=== PATIENT | female | born 1955 | race American Indian/Alaskan Native ===

== ENCOUNTER 2019-03-11 10:29 | Emergency (ER) | payer BC ==
[2019-03-11 10:36] VITALS: BP 156/86
--- NOTE | 2019-03-11 11:23 | UC ---
Respiratory Complaint HPI - HPI Summary HPI Summary: 64-year-old patient who has had cold symptoms with head congestion and nonproductive cough over the past 3 days which is worsening today. Today she states that she has chest pain with coughing and if she takes a deep inspiration. She is a nonsmoker. She denies any chest pain when she is not coughing, no radiation of pain, no nausea, diaphoresis. She has no history of DVT or pulmonary embolus. She is not on any hormone therapy. - History of Current Complaint Chief Complaint: UCRespiratory Stated Complaint: uri Time Seen by Provider: 03/11/19 11:09 Hx Obtained From: Patient ?: No Onset/Duration: Sudden Onset Timing: Constant Severity Initially: Mild Severity Currently: Moderate Pain Intensity: 10 Associated Signs And Symptoms: Positive: URI, Nasal Congestion - Allergies/Home Medications Allergies/Adverse Reactions: Allergies Allergy/AdvReac Type Severity Reaction Status Date / Time No Known Allergies Allergy Verified 03/24/14 19:27 Home Medications: Home Medications NK [No Home Medications Reported] 03/11/19 [History Confirmed 03/11/19] PMH/Surg Hx/FS Hx/Imm Hx Previously Healthy: Yes - Surgical History Surgical History: None - Family History Known Family History: Positive: Non-Contributory - Social History Alcohol Use: Rare Substance Use Type: None Smoking Status (MU): Never Smoked Tobacco Review of Systems All Other Systems Reviewed And Are Negative: Yes ENT: Positive: Nasal Discharge Respiratory: Positive: Cough - Nonproductive cough.. Negative: Shortness Of Breath Cardiovascular: Positive: Chest Pain - Patient states she has chest pain with coughing and when taking deep breaths. Is Patient Immunocompromised?: No Physical Exam Triage Information Reviewed: Yes Appearance: Well-Appearing, No Pain Distress, Well-Nourished Vital Signs: Initial Vital Signs Temp 99 F 03/11/19 10:33 Pulse 100 03/11/19 10:33 Resp 20 03/11/19 10:33 BP 156/86 03/11/19 10:33 Pulse Ox 100 03/11/19 10:33 Vital Signs Reviewed: Yes Eyes: Positive: Conjunctiva Clear ENT: Positive: Hearing grossly normal, Pharynx normal, Nasal congestion, TMs normal, Uvula midline Neck: Positive: Supple, Nontender, No Lymphadenopathy Respiratory: Positive: Lungs clear, Normal breath sounds, No respiratory distress, No accessory muscle use Cardiovascular: Positive: RRR, No Murmur, Pulses Normal, Brisk Capillary Refill Musculoskeletal Exam: Normal Neurological Exam: Normal Psychological Exam: Normal Skin Exam: Normal Respiratory Course/Dx - Course Course Of Treatment: Chest x-ray:2 views of the chest including dual energy PA views demonstrates no mediastinal shift. Heart is of normal size and configuration. Lung dumont are clear. IMPRESSION: No active cardiopulmonary disease is noted. Well's Score is 1.5 I spoke with the patient about going to the emergency room for evaluation for pulmonary embolus and she is willing to go however she is not willing to take an ambulance. Her is accompanying her and he will drive her to the emergency room. I advised them if they have any difficulties lung way they are to call 911. I gave report to Taniya Cash in the emergency room. Although the patient has a very low well's score with the negative chest x-ray and the way she is hyperventilating and still having the chest pain on deep inspiration I believe she needs to be evaluated for pulmonary embolus. - Differential Dx/Diagnosis Provider Diagnosis: Chest pain made worse by breathing Discharge - Sign-Out/Discharge Documenting (check all that apply): Patient Departure All imaging exams completed and their final reports reviewed: Yes - Discharge Plan Condition: Fair Disposition: HOME-RECOMMEND TO ED Referrals: No Primary Care Phys,NOPCP [Primary Care Provider] - Additional Instructions: After the evaluation by the nurse practitioner, it is recommended that you go to the emergency room for further evaluation of the difficulty breathing and chest pain on inspiration where you should receive additional testing that can be completed in the emergency department. It is recommended that you go directly to the emergency department. This evaluation may include blood work or imaging. This testing will be directed and decided by the provider that evaluates you within the emergency department. If pain becomes worse, you feel lightheaded or you develop worsening symptoms or have any other concerns while you are driving to the emergency room, please order puller and call 911. - Billing Disposition and Condition Condition: FAIR Disposition: Home-Recommend to ED
== END 2019-03-11 12:12 | disposition home health service (06) ==
LOC: UCEAST 10:29
DX: R07.1 Chest pain on breathing (principal); R09.89 Other specified symptoms and signs involving the circulatory and respiratory systems
CPT/HCPCS: 71046; 99201; G0463

== ENCOUNTER 2019-03-11 12:34 | Emergency (ER) | payer BC ==
[2019-03-11 13:25] LABS: ABS Basophils 0.1 10^3/ul (0-0.2); ABS Lymphocytes 1.6 10^3/ul (1.0-4.8); ABS Monocytes 0.8 10^3/ul (0-0.8); ABS Neutrophils 5.4 10^3/ul (1.5-7.7); Eosinophil % 0.4 %; Hematocrit 45 % (35-47); Hemoglobin 15.1 g/dL (12.0-16.0); Mean Corpuscular HGB Conc 34 g/dL (31-36); Mean Corpuscular Hemoglobin 30 pg (27-31); Mean Corpuscular Volume 89 fL (80-97); Mean Platelet Volume 7.6 fL (7.4-10.4); Nucleated Red Blood Cells % 0.5; Platelet Count 310 10^3/uL (150-450); Red Blood Count 5.01 10^6 /uL (3.70-4.87); Red Cell Distribution Width 13 % (10.5-15); White Blood Count 7.9 10^3/uL (3.5-10.8)
[2019-03-11 13:41] LABS: INR 0.95 (0.82-1.09)
[2019-03-11 13:50] LABS: Albumin 5.1 g/dL (3.2-5.2); Albumin/Globulin Ratio 1.7 (1-3); BUN/Creatinine Ratio 10.8 (8-20); Calcium 10.8 mg/dL (8.6-10.3); EGFR Non-African American 54.6 (>60); Potassium 4.6 mmol/L (3.5-5.0); Total Bilirubin 0.6 mg/dL (0.2-1.0); Total Protein 8.1 g/dL (6.4-8.9)
--- NOTE | 2019-03-11 13:50 | ED ---
Respiratory - HPI Summary HPI Summary: A 64 y/o F referred from [facility] presents to ED with SOB onset 3-4 days ago. Patient has had a cold recently. CXR at [facility], today at 11:55, showed no cardiopulmonary dz. Associated sx: non-productive cough. Denies fever, calf pain , CP. She's been taking Robitussin for her cough with mild relief. She did not receive the flu shot this year. She went to her granddaughters graduation last weekend and was exposed to many people. Non-smoker. No prior hx of PNA. Her PMHx includes anemia, asthma as a child. Patient does not have a PCP, she does not like to go to the doctor. Denies recent travel, [place] estrogen use. Prior surgeries: appy, ablation approx 20 years ago. Vitals at bedside: Patient seen in sub-waiting at 13:47. 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 - Onset/Duration: Gradual Onset, Lasting Days, Still Present Timing: Constant Initial Severity: Moderate Current Severity: Moderate Pain Intensity: 4 - out of 10 Character: Cough (Nonproductive), Dyspnea at Rest Sputum Amount: None Aggravating Factor(s): Nothing Alleviating Factor(s): OTC Medications - mild relief with Robitussin Associated Signs and Symptoms: SOB, URI, Nasal Congestion - Allergy/Home Medications Allergies/Adverse Reactions: Allergies Allergy/AdvReac Type Severity Reaction Status Date / Time No Known Allergies Allergy Verified 03/11/19 12:41 PMH/Surg Hx/FS Hx/Imm Hx Previously Healthy: No Endocrine/Hematology History: Reports: Hx Anemia Respiratory History: Reports: Hx Asthma - A CHILD Opthamlomology History: Denies: Hx Legally Blind Neurological History: Denies: Hx Dementia - Cancer History Cancer Type, Location and Year: denies Infectious Disease History: No Infectious Disease History: Denies: Traveled Outside the [place] in Last 30 Days - Family History Family History: mom - DVTs, cardiac stents. father - unknown - Social History Occupation: Employed Full-time Lives: With Family Alcohol Use: Rare Hx Substance Use: No Substance Use Type: Reports: None Hx Tobacco Use: No Smoking Status (MU): Never Smoked Tobacco Review of Systems Negative: Fever Positive: Nasal Discharge - and congestion, resolving Negative: Chest Pain Positive: Shortness Of Breath, Cough Gastrointestinal: Negative Positive: no symptoms reported Negative: Myalgia - neg: calf pain Skin: Negative Neurological: Negative Psychological: Normal All Other Systems Reviewed And Are Negative: Yes Physical Exam - Summary Physical Exam Summary: Appearance: well-appearing, no pain distress, well-nourishished Skin: Warm, color reflects adequate perfusion, dry Head: Normal Head/Face inspection, atraumatic Eyes: Conjunctiva clear ENT: Normal inspection Neck: Supple, no nodes, no JVD Respiratory: Unable to take deep breath without cough, congested deep cough, no definite wheezes Cardio: RRR, No murmur, pulses normal, brisk capillary refill Abdomen: Soft, nontender Bowel sounds: Present Musculoskeletal: Strength Intact/ROM intact, no calf tenderness, no edema. Psychological: Normal Neuro: Alert, muscle tone normal, no focal deficit Triage Information Reviewed: Yes Vital Signs On Initial Exam: Initial Vitals Temp Pulse Resp BP Pulse Ox 97.9 F 94 20 173/86 99 03/11/19 12:37 03/11/19 12:37 03/11/19 12:37 03/11/19 12:37 03/11/19 12:37 Vital Signs Reviewed: Yes Diagnostics - Vital Signs Vital Signs Temp Pulse Resp BP Pulse Ox 03/11/19 12:37 97.9 F 94 20 173/86 99 - Laboratory Lab Results: Lab Results 03/11/19 03/11/19 Range/Units 13:12 13:12 WBC 7.9 (3.5-10.8) 10^3/uL RBC 5.01 H (3.70-4.87) 10^6 /uL Hgb 15.1 (12.0-16.0) g/dL Hct 45 (35-47) % MCV 89 (80-97) fL MCH 30 (27-31) pg MCHC 34 (31-36) g/dL RDW 13 (10.5-15) % Plt Count 310 (150-450) 10^3/uL MPV 7.6 (7.4-10.4) fL Neut % (Auto) 68.9 % Lymph % (Auto) 20.0 % [place] % (Auto) 9.7 % Eos % (Auto) 0.4 % Baso % (Auto) 1.0 % Absolute Neuts (auto) 5.4 (1.5-7.7) 10^3/ul Absolute Lymphs (auto) 1.6 (1.0-4.8) 10^3/ul Absolute Monos (auto) 0.8 (0-0.8) 10^3/ul Absolute Eos (auto) 0.0 (0-0.6) 10^3/ul Absolute Basos (auto) 0.1 (0-0.2) 10^3/ul Absolute Nucleated RBC 0.0 10^3/ul Nucleated RBC % 0.5 INR (Anticoag Therapy) 0.95 (0.82-1.09) D-Dimer, Quantitative < 200 (Less Than 230) ng/mL Result Diagrams: 03/11/19 13:12 03/11/19 13:12 Lab Statement: Any lab studies that have been ordered have been reviewed, and results considered in the medical decision making process. - Radiology CXR Radiology Interpretation Completed By: Radiologist Summary of Radiographic Findings: CXR was done at [facility] earlier today and showed no active cardiopulmonary disease. - EKG 1339 Cardiac Rate: NL - 87 bpm EKG Rhythm: Sinus Rhythm ST Segment: Non-Specific Ectopy: None EKG Comparison: Other - No prior for comparison Summary of EKG Findings: An EKG at 1339 shows NSR at [address], nml QTc, and Left axis. No acute changes. No prior for comparison. ED MD has reviewed and interpreted this EKG Re-Evaluation - Re-Evaluation 1 Re-Evaluation Time: 18:18 Change: Improved Comment: Discussing neg results of CTA with patient. Patient is pain free, afebrile and O2 sats are good, but when she takes a deep breath it still causes her to cough. Will order a nebulizer treatment, steroids, and plan discharge with albuterol and steroids for outpatient treatment. Disposition - Course Course Of Treatment: Pt is a 64 y/o F with a recent cold, referred from [facility], presenting with SOB and non-productive cough onset 3-4 days ago. Non-smoker. CXR at 11:55 done at [facility]: No active cardiopulmonary dz. Lab work is without significant abnormality, including negative d-dimer and two troponins of zero ( three hours apart). An EKG at 1339 shows NSR at [address], nml QTc , and Left axis. No acute changes. No prior for comparison. Pt was unable to take a deep breath without coughing, likely representing bronchospasm, but pt does not have wheezes. Respiratory therapy noted that pt did not complete duoneb, DC'd it after only five minutes due to "feeling funny", but pt agrees to try inhaler at home. Will discharge patient home with Albuterol inhaler, Prednisone x 5 days and to follow up with [facility]. Allergies noted. Pt medications reviewed this visit. Nurses note reviewed. - Differential Dx - Cardiopulmonary Differential Diagnoses - Cardiopulmonary: Asthma, Bronchitis, CAD, Exacerbation Of COPD, Lower Resp Infection, Pulmonary Embolism - Diagnoses Provider Diagnoses: Bronchitis, Bronchospasm with bronchitis, acute Discharge - Sign-Out/Discharge Documenting (check all that apply): Patient Departure - D/C Patient Received Moderate/Deep Sedation with Procedure: No - Discharge Plan Condition: Stable Disposition: HOME Prescriptions: Albuterol HFA INHALER* [Ventolin HFA Inhaler*] 2 puff INH Q4H PRN #1 mdi PRN Reason: cough, sob predniSONE TAB* [Deltasone 20 MG TAB*] 40 mg PO DAILY #10 tab Patient Education Materials: Acute Bronchitis (ED) Forms: *Work Release Referrals: [facility] [Outside] - 2 Days Additional Instructions: Your lab tests today did not show evidence for possibility of a blood clot causing your shortness of breath and cough. Your lab tests also did not show any evidence of cardiac damage. Your chest x-ray from urgent care did not show pneumonia or any problem with the lungs. Dr. Swanson is diagnosing you with bronchitis. She did a breathing treatment for you in the emergency room because you could not take a deep breath without coughing. She also gave you your first dose of prednisone in the ER that will help with your SOB. You should continue the prednisone beginning tomorrow morning once a day for the next 5 days. You should also use an inhaler which is the same medication that was in the breathing treatment. You should use this inhaler every 4 hours while your awake for the next [address] Swanson has given your referral to the [facility] who can see you if you need a repeat visit for your shortness of breath. You should also get established with your own primary care physician. Return to the emergency room if you have any new or worsening symptoms. - Billing Disposition and Condition Condition: STABLE Disposition: Home - Attestation Statements Document Initiated by Vida: Yes Documenting Scribe: Diandra Freedman Provider For Whom Vida is Documenting (Include Credential): Dr. Taniya Swanson MD Scribe Attestation: IDiandra, scribed for Dr. Taniya Swanson MD on 03/14/19 at 1700. Scribe Documentation Reviewed: Yes Provider Attestation: The documentation as recorded by the Diandra alcaraz accurately reflects the service I personally performed and the decisions made by me, Dr. Taniya Swanson MD Status of Scribe Document: Viewed
[2019-03-11] MEDS ORDERED: Albuterol/Ipratropium NEB.SOL* Albuterol 2.5 MG/Ipratropium 0.5 MG 3 ML INH ONE (18:23)
[2019-03-11] MEDS ORDERED: predniSONE TAB* 20 MG PO ONE (18:24)
[2019-03-11 19:26] VITALS: BP 162/97
== END 2019-03-11 19:25 | disposition home or self-care (01) ==
LOC: ED 12:34
DX: J20.9 Acute bronchitis, unspecified (principal); R09.81 Nasal congestion
CPT/HCPCS: 36415; 80053; 84484; 85025; 85379; 85610; 93005; 99283; A9270-GY; J7512